=== PATIENT | male | born 1960 | race African-American/Black ===

== ENCOUNTER 2019-06-09 14:51 | Outpatient (CLI) | payer OTHER ==
--- NOTE | 2019-06-09 16:11 | ULT ---
LEFT LOWER EXTREMITY VENOUS DOPPLER WITH SPECTRAL ANALYSIS AND COLOR FLOW EVALUATION: 06/09/19 HISTORY: Left lower extremity swelling/edema for one month. FINDINGS: Cid scale, color flow, Doppler evaluation, with spectral analysis of the left lower extremity venous structures is performed with 2D imaging. A left lower extremity common femoral, superficial femoral, popliteal, posterior tibial, most proximal greater saphenous and profunda femoral veins are imaged. There is normal lumen compressibility, flow, and augmentation in the visualized deep venous structure s of the left lower extremity. IMPRESSION: No evidence of a DVT involving the visualized deep venous structures left lower extremity. POS: MONIE
== END 2019-06-09 14:52 | disposition home or self-care (01) ==
LOC: ULT 14:51
PROVIDERS: ATTEND Family Medicine
DX: M79.89 Other specified soft tissue disorders (principal); R79.89 Other specified abnormal findings of blood chemistry

== ENCOUNTER 2019-08-02 11:52 | Outpatient (CLI) | payer OTHER ==
--- NOTE | 2019-08-02 12:38 | RAD ---
3 views left foot: 08/02/2019 COMPARISON: None HISTORY: Injury, trauma, pain FINDINGS: There is enthesophyte formation at the origin of the plantar aponeurosis. There is mild mid foot dorsal degenerative change seen on the lateral view. There is a linear calcific density at the lateral base of the first metatarsal-phalangeal joint which could signify sequela of prior trauma with heterotopic bone formation. A subacute fracture in this region with associated callus cannot be excluded. There is no widening of the interspace at the base of the first and second metatarsals. No displaced fracture or dislocation. IMPRESSION: Linear calcific density along the lateral aspect of the first metatarsal-phalangeal joint may signify the sequela of prior trauma or could potentially represent callus on the basis of a subacute fracture. Multiple chronic findings as detailed above. If there is continued clinical concer n for a midfoot injury, MRI of the foot is recommended.
== END 2019-08-02 11:53 | disposition home or self-care (01) ==
LOC: RAD 11:52
PROVIDERS: ATTEND Family Medicine
DX: M79.672 Pain in left foot (principal); R93.7 Abnormal findings on diagnostic imaging of other parts of musculoskeletal system